=== PATIENT | male | born 1945 | race Caucasian/White ===

== ENCOUNTER → 2017-08-10 | Day surgery (SDC) | payer MEDICARE ==
[~2017-08-10] MED LIST: ACETAMINOPHEN 1000 MG/100 ML 100 ML IV; LACTATED RINGER'S 1000 ML INJ 1,000 ML; SODIUM CHLOR 0.9% 250 ML INJ 250 ML IV; VANCOMYCIN HCL 1000 MG VIAL; ceFAZolin INJ 1,000 MG VIAL
== END | disposition home or self-care (01) ==
LOC: ESDC 08:42
DX: K40.90 Unilateral inguinal hernia, without obstruction or gangrene, not specified as recurrent (principal); Z01.810 Encounter for preprocedural cardiovascular examination; Z53.9 Procedure and treatment not carried out, unspecified reason
CPT/HCPCS: 93005; 99211